=== PATIENT | male | born 1960 | race Caucasian/White ===

== ENCOUNTER → 2016-06-03 | Outpatient (CLI) | payer BC ==
[~2016-06-03] MED LIST: CIPR500T86 PO; MELO7.5T31 PO; TRAM50TA PO
--- NOTE | 2016-06-03 15:12 | DIREP ---
PROCEDURE:MR KNEE WITHOUT CONTRAST [Left] TECHNIQUE:Axial proton density fat sat; coronal T1 and inversion recovery; sagittal proton density, proton density fat sat and T2 weighted sequences were obtained. COMPARISON:None. INDICATIONS:MENISCAL TEAR FINDINGS: Menisci: The medial and lateral menisci are intact. Cruciate ligaments: The anterior and posterior cruciate ligaments are normal. Bones and joint space: There is a small joint effusion. There are no loose bodies. There is no fracture, marrow edema, destructive intraosseous lesion or evidence of avascular necrosis. The articular cartilage in the medial and lateral femorotibial compartments is intact. Collateral ligaments: The medial and lateral collateral ligaments are normal. Extensor mechanism: The quadriceps and patellar tendons are normal. 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 There is thinning of the articular cartilage along the lateral margin of the trochlear groove axial series 21 images 24-25. The medial and lateral retinacula are normal. The pre-femoral, suprapatellar and infrapatellar fat pads are normal. There is no prepatellar or infrapatellar bursitis. Miscellaneous: The muscles and tendons about the knee are intact. The neurovascular structures are normal. The tibiofibular joint is normal. Minimal amount of fluid is present in the medial gastrocnemius semimembranosus recess without distention or extravasation. CONCLUSION: 1. Chondromalacia patella. Chondral thinning is also present lateral trochlear groove. 2. Small joint effusion and minimal amount of fluid in the medial gastrocnemius semimembranosus recess. 3. The menisci are intact. 4. Bipartite patella. Dictated by: Mart Jovel M.D. on 06/03/2016 at 03:05 PM
== END | disposition home or self-care (01) ==
LOC: MRI 13:17
PROVIDERS: ATTEND Orthopaedic Surgery
DX: M22.42 Chondromalacia patellae, left knee (principal); M25.462 Effusion, left knee; Q74.1 Congenital malformation of knee
CPT/HCPCS: 73721

== ENCOUNTER 2016-12-20 03:53 | Day surgery (SDC) | payer BC ==
[2016-12-19 10:42] VITALS: BP 162/97
[2016-12-19 11:22] LABS: BASOPHIL # 0.1 10^3/uL (0.0-0.1); BASOPHIL % 1.3 % (0.0-0.2); EOSINOPHIL # 0.2 10^3/uL (0.0-0.2); EOSINOPHIL % 4.2 % (0.0-5.0); HEMOGLOBIN 18.2 g/dL (13.9-16.3); LYMPHOCYTES # 1.5 10^3/uL (1.0-4.8); MEAN CELL HGB 28.8 pg (26-34); MEAN CORP VOLUME 84.9 fL (78-100); MEAN PLATELET VOLUME 8.8 fL (7.8-11.0); MONOCYTES # 0.5 10^3/uL (0.3-0.8); MONOCYTES % 9.1 % (5.0-12.0); NEUTROPHILS % 56.8 % (41.0-85.0); RED CELL DISTRIBUTION WIDTH 14.9 % (11.5-14.5); WHITE BLOOD CELL 5.3 10^3/uL (4.5-11.0)
[2016-12-19 11:59] LABS: CARBON DIOXIDE 27.3 mmol/L (20.0-32)
[~2016-12-20] VITALS: Ht 167.6 cm; Wt 76.2 kg
[2016-12-20] VITALS (9 sets, daily range): BP systolic 113–141; BP diastolic 67–95
[~2016-12-20 03:53] MED LIST changes: +MELO-180 PO; -MELO7.5T31 PO
[2016-12-20] MEDS ORDERED: LASIX ONE (05:22)
[2016-12-20] MEDS ORDERED: LACTATED RINGERS 1,000 ML ONE ×2 (05:22→07:03)
[2016-12-20] MEDS ORDERED: LACTATED RINGERS 1,000 ML IV SCH ×2 (06:00→09:00)
[2016-12-20] MEDS ORDERED: SUBLIMAZE ONE (06:43)
[2016-12-20] MEDS ORDERED: DIPRIVAN IV ONE (06:43)
[2016-12-20] MEDS ORDERED: SUBLIMAZE IV PRN (07:30)
[2016-12-20] MEDS ORDERED: BENADRYL IV PRN (07:30)
[2016-12-20] MEDS ORDERED: ZOFRAN IV PRN (07:30)
[2016-12-20] MEDS ORDERED: PHENERGAN IV PRN (07:30)
[2016-12-20] MEDS ORDERED: LASIX IV ONE (08:00)
[2016-12-20] MEDS ORDERED: ZOFRAN ONE (08:04)
[2016-12-20] MEDS ORDERED: DECADRON ONE (08:04)
[2016-12-20] MEDS ORDERED: NORCO 7.5MG PO PRN (09:00)
[2016-12-20] MEDS ORDERED: TRAM50TA PO (09:03)
[2016-12-20] MEDS ORDERED: CIPR500T86 PO (09:03)
--- NOTE | 2016-12-20 09:52 | OPH ---
DATE OF SURGERY: 12/20/2016 PREOPERATIVE DIAGNOSIS: Left renal calculi. FINAL DIAGNOSIS: Left renal calculi. PROCEDURE: Left ESWL. DESCRIPTION OF PROCEDURE: The patient was brought to the lithotripsy room, was put in supine position on the lithotripsy table. A left preop renal ultrasound was initially performed which revealed 2 stones in the left kidney, 1 in the upper pole measuring 5.4 mm in diameter, another stone in the middle pole measuring 4.2 mm in diameter. There was no evidence of hydronephrosis, no cysts or masses noted. After the patient was given an LMA general anesthesia and after localization of the stones with the use of an ultrasound and fluoroscopy, a left ESWL was then performed using a [employer] Compact Delta II Lithotripter. A total of 1500 shockwaves were delivered to the stones in different locations in the left kidney under ultrasound guidance. After fragmentation of the stone as noted in the ultrasound the procedure was terminated. The patient was awakened, was transferred to the recovery room in stable condition. Mario Urrutia MD DR: KATIE/gemini JOB# [id number]
== END 2016-12-20 10:05 | disposition home or self-care (01) | DRG 694 ==
LOC: SDC 03:53
PROVIDERS: ATTEND Urology
DX: N20.0 Calculus of kidney (principal); K21.9 Gastro-esophageal reflux disease without esophagitis; M19.90 Unspecified osteoarthritis, unspecified site; E66.3 Overweight; Z68.27 Body mass index [BMI] 27.0-27.9, adult; Z98.890 Other specified postprocedural states; Z79.899 Other long term (current) drug therapy
CPT/HCPCS: 36415; 50590; 80051; 82565; 84520; 85025; 85610; 85730; 93005; J1100; J2405; J3010; J3490; J7120 ×2; J1940